=== PATIENT | female | born 1995 ===

== ENCOUNTER 2021-11-08 10:06 | Inpatient (IN) ==
[2021-11-08] MEDS ORDERED: CITRIC ACID/SODIUM CITRATE 30 ML UDCUP PO ONE (10:24)
[2021-11-08] MEDS ORDERED: CARBOPROST TROMETHAMINE 250 MCG/ML AMP IM PRN (10:24)
[2021-11-08] MEDS ORDERED: METHYLERGONOVINE 0.2 MG/1 ML AMP IM PRN (10:24)
[2021-11-08] MEDS ORDERED: miSOPROStoL 200 MCG TABLET RECTAL PRN (10:24)
[2021-11-08] MEDS ORDERED: TRANEXAMIC ACID 1,000 MG in SODIUM CHLORIDE 0.9% 100 ML IV PRN (10:24)
[2021-11-08] MEDS ORDERED: OXYTOCIN/LR 20 UNIT/1,000 ML BAG IV ONE ×2 (10:24→17:08)
[2021-11-08] MEDS: LACTATED RINGERS 1,000 ML IV SCH ×2 (10:54→14:59)
[2021-11-08 11:07] LABS: Basophils % 0.2 % (0.0-0.8); Eosinophils # 0.1 10*3/uL (0.0-0.87); Eosinophils % 1.4 % (0.00-10.9); Hematocrit 30.6 VOL% (35.7-47.0); Hemoglobin 9.5 GM/DL (12.0-16.0); Immature Granulocytes % 0.6 %; Immature Granulocytes Absolute 0.05 #; Lymphocytes # 1.2 10*3/uL (1.4-4.0); Lymphocytes % 13.9 % (21.3-54.2); Mean Corpuscular Volume 85.2 FL (87-102); Mean Platelet Volume 11.5 FL (9.6-12.0); Monocytes # 0.6 10*3/uL (0.11-0.8); Monocytes % 6.9 % (1.7-12.7); Platelet Count 210 T/CUMM (130-400); Red Blood Count 3.59 MC/CUMM (3.8-5.5); Red Cell Distribution Width 14.9 % (9.3-17.3); White Blood Count 8.5 T/CUMM (4-12)
[2021-11-08] MEDS ORDERED: buprenorphine HCL 0.3 MG/ML VIAL ONE (13:58)
[2021-11-08] MEDS ORDERED: ONDANSETRON 4 MG/2 ML VIAL ONE (13:58)
[2021-11-08] MEDS ORDERED: BUPIVACAINE SPINAL 0.75% 2 ML AMP SPINAL ONE (13:58)
[2021-11-08] MEDS ORDERED: OXYTOCIN 10 UNIT/ML VIAL IM ONE (14:00)
[2021-11-08] MEDS ORDERED: ceFAZolin 3,000 MG in SYRINGE 1 EACH IV ONE (14:00)
[2021-11-08] MEDS ORDERED: FAMOTIDINE 20 MG/2 ML VIAL IV ONE (14:00)
[2021-11-08] MEDS ORDERED: OXYTOCIN/LR 30 UNIT/1,000 ML BAG IV ONE (14:00)
[2021-11-08] MEDS ORDERED: TRANEXAMIC ACID 1,000 MG/10 ML VIAL ONE (14:25)
[2021-11-08] MEDS ORDERED: SODIUM CHLORIDE 0.9% 0 ML IV ONE (14:25)
[2021-11-08] MEDS ORDERED: miSOPROStoL 200 MCG TABLET ONE (14:25)
[2021-11-08] MEDS ORDERED: METHYLERGONOVINE 0.2 MG/1 ML AMP ONE (14:26)
[2021-11-08] MEDS ORDERED: CARBOPROST TROMETHAMINE 250 MCG/ML AMP IM ONE (14:26)
[2021-11-08 14:52] LABS: Alanine Aminotransferase 12 U/L (13-56); Albumin 2.5 G/DL (3.4-5.0); Alkaline Phosphatase 218 U/L (45-117); Aspartate Amino Transferase 10 U/L (0-37); Bilirubin,Total < 0.39 MG/DL (0.20-1.00); Blood Urea Nitrogen 8 MG/DL (7-18); Calcium 8.8 MG/DL (8.5-10.1); Carbon Dioxide 21 MMOL/L (21-32); Chloride 110 MMOL/L (98-107); Glucose 90 MG/DL (74-106); Osmolality,Calculated 274.5 MOS/KG (273-304); Potassium 3.5 MMOL/L (3.5-5.1); Sodium 139 MMOL/L (136-145); Total Protein 6.7 G/DL (6.4-8.2)
[2021-11-08] MEDS ORDERED: MIDAZOLAM 2 MG/2 ML VIAL ONE (16:14)
[2021-11-08 16:45] LABS: Cord Arterial Blood HCO3 22.2 MMOL/L
[2021-11-08 16:47] LABS: Cord Venous Blood PCO2 46.6 MMHG
[2021-11-08] MEDS ORDERED: LACTATED RINGERS 1,000 ML IV ONE (16:59)
[2021-11-08] MEDS ORDERED: PHENYLEPHRINE 1 MG/10 ML SYRINGE IV ONE (16:59)
[2021-11-08] MEDS ORDERED: ONDANSETRON 4 MG/2 ML VIAL IV PRN (17:08)
[2021-11-08] MEDS ORDERED: SIMETHICONE CHEW 80 MG TABLET PO PRN (17:08)
[2021-11-08] MEDS ORDERED: ACETAMINOPHEN 325 MG TABLET PO PRN (17:08)
[2021-11-08] MEDS ORDERED: RHO(D) IMMUNE GLOBULIN 300 MCG SYRINGE IM ONE (17:08)
[2021-11-08] MEDS ORDERED: IBUPROFEN 800 MG TABLET PO PRN (17:08)
[2021-11-08] MEDS ORDERED: MAGNESIUM HYDROXIDE SUSP 30 ML UDCUP PO PRN (17:08)
[2021-11-08 17:17] LABS: RBC,Urine 2 /HPF (0-4); Squamous Epithelial Cell,Urine Occasional /HPF (0-10)
[2021-11-08 17:24] LABS: Bilirubin,Urine Negative (Negative); Blood, Urine Negative (Negative); Glucose,Urine (UA) Negative (Negative); Ketones,Urine Negative (Negative); Nitrite,Urine Negative (Negative); Protein,Urine Negative (Negative); Urine Appearance Clear (Clear); Urine Color Yellow (Yellow); Urine Urobilinogen 0.2 eU/dL (<2.0)
[2021-11-08] MEDS ORDERED: LACTATED RINGERS 1,000 ML IV SCH (17:30)
[2021-11-08] MEDS: ACETAMINOPHEN 500 MG TABLET PO SCH (20:26)
[2021-11-08] MEDS: DOCUSATE SODIUM 100 MG CAPSULE PO SCH (22:36)
[2021-11-08] MEDS: KETOROLAC 30 MG/1 ML VIAL IV SCH (22:37)
[2021-11-08] MEDS: ceFAZolin 2,000 MG/50 ML DUPLEX IV SCH (22:37)
[2021-11-09 00:20] LABS: Basophils % 0.2 % (0.0-0.8); Eosinophils % 0.3 % (0.00-10.9); Hematocrit 30.9 VOL% (35.7-47.0); Hemoglobin 9.7 GM/DL (12.0-16.0); Immature Granulocytes % 0.4 %; Immature Granulocytes Absolute 0.04 #; Lymphocytes # 0.9 10*3/uL (1.4-4.0); Lymphocytes % 10.1 % (21.3-54.2); Mean Corpuscular HGB Conc 31.4 GM/DL (32-36); Mean Corpuscular Volume 85.4 FL (87-102); Mean Platelet Volume 11.5 FL (9.6-12.0); Monocytes # 0.6 10*3/uL (0.11-0.8); Monocytes % 6.2 % (1.7-12.7); Neutrophils % 82.8 % (38.7-73.9); Platelet Count 211 T/CUMM (130-400); Red Blood Count 3.62 MC/CUMM (3.8-5.5); White Blood Count 9.3 T/CUMM (4-12)
[2021-11-09] MEDS: ACETAMINOPHEN 500 MG TABLET PO SCH ×2 (02:14→09:03)
[2021-11-09] MEDS: KETOROLAC 30 MG/1 ML VIAL IV SCH (04:24)
[2021-11-09] MEDS: ceFAZolin 2,000 MG/50 ML DUPLEX IV SCH (06:45)
[2021-11-09 08:25] LABS: Basophils % 0.3 % (0.0-0.8); Eosinophils # 0.1 10*3/uL (0.0-0.87); Eosinophils % 1.2 % (0.00-10.9); Hematocrit 29.4 VOL% (35.7-47.0); Hemoglobin 9.2 GM/DL (12.0-16.0); Immature Granulocytes % 0.3 %; Immature Granulocytes Absolute 0.02 #; Lymphocytes # 1.1 10*3/uL (1.4-4.0); Lymphocytes % 14.5 % (21.3-54.2); Mean Corpuscular HGB Conc 31.3 GM/DL (32-36); Mean Corpuscular Volume 85.7 FL (87-102); Mean Platelet Volume 10.7 FL (9.6-12.0); Monocytes # 0.6 10*3/uL (0.11-0.8); Monocytes % 7.9 % (1.7-12.7); Neutrophils % 75.8 % (38.7-73.9); Platelet Count 208 T/CUMM (130-400); Red Blood Count 3.43 MC/CUMM (3.8-5.5); Red Cell Distribution Width 14.8 % (9.3-17.3); White Blood Count 7.5 T/CUMM (4-12)
[2021-11-09] MEDS: MULTIVITAMIN (PRENATAL) TABLET PO SCH (09:02)
[2021-11-09] MEDS: DOCUSATE SODIUM 100 MG CAPSULE PO SCH ×2 (09:03→21:08)
[2021-11-09] MEDS: FERROUS SULFATE 325 MG TABLET PO SCH (21:08)
[2021-11-10 07:12] VITALS: BP 136/76
[2021-11-10] MEDS: MULTIVITAMIN (PRENATAL) TABLET PO SCH (08:00)
[2021-11-10] MEDS: FERROUS SULFATE 325 MG TABLET PO SCH (08:00)
[2021-11-10] MEDS: DOCUSATE SODIUM 100 MG CAPSULE PO SCH (08:00)
[2021-11-10] MEDS ORDERED: DIPH/TET/ACEL PERT BOOSTER VACCINE 0.5 ML VIAL IM ONE (10:41)
== END 2021-11-10 12:30 | disposition home or self-care (01) | DRG 540 ==
LOC: N.LD 10:06 → N.OB 20:40
PROVIDERS: ADMIT Obstetrics & Gynecology; ATTEND Obstetrics & Gynecology
PROC: LDCSECT (ICD-10-PCS; 2021-11-08 14:30)